=== PATIENT | male | born 1955 | race Caucasian/White ===

== ENCOUNTER 2017-09-23 21:16 | Emergency (ER) | payer BC ==
[~2017-09-23] VITALS: Ht 177.8 cm; Wt 108.3 kg
[~2017-09-23 21:16] MED LIST: CITA20TA9 PO; FLX10 PO; GLC500 PO
[2017-09-23 21:25] VITALS: TEMP 36.6; Ht 177.8 cm; Wt 108.3 kg
[2017-09-23] MEDS ORDERED: DIPHTHERIA/TETANUS/PERTUSSIS 0.5 ML SYR/VIAL IM. ONE (21:45)
[2017-09-23] MEDS ORDERED: LIDOCAINE/EPINEPHRINE 1% 20 ML VIAL INFIL ONE (21:45)
--- NOTE | 2017-09-23 21:59 | EMERGENCY ROOM VISIT NOTE ---
History First contact with patient: 21:31 Chief Complaint: LACERATION/CUT (NON-SUTURE) Stated Complaint: R LEG LAC History of Present Illness The patient is a 61 year old male who presents to the Emergency Room with complaints of a laceration to his right leg. The patient reports that he was moving a refrigerator today and it fell, scraping his right anterior gabriel. He reports he has a laceration to that area. He denies any pain at this time. He states that his tetanus is not up-to-date. He denies any numbness or weakness. Review of Systems A complete 6 point review of systems was reviewed with the patient with pertinent positives and negatives as per history of present illness. All else were negative. Past Medical/Surgical History Medical Problems: (1) Arm pain, left (2) GERD (gastroesophageal reflux disease) (3) Osteoarthritis Surgical Problems: (1) H/O shoulder surgery (2) History of cholecystectomy Family History FH: myocardial infarction FATHER Social History Smoking Status: Never Smoker Drug Use: none Marital Status: Housing Status: lives with significant other Occupation Status: retired Current/Historical Medications Scheduled Citalopram Hydrobromide (Celexa), 20 MG PO DAILY Metformin HCl (Metformin HCl), 500 MG PO BID Scheduled PRN Cyclobenzaprine HCl (Cyclobenzaprine HCl), 10 MG PO DAILY PRN for Muscle Spasms Physical Exam Vital Signs Date Time Temp Pulse Resp B/P (MAP) Pulse Ox O2 Delivery O2 Flow Rate FiO2 09/23/17 22:54 71 18 128/65 95 09/23/17 21:25 36.6 71 18 123/69 95 Room Air Physical Exam VITALS: Vitals are noted on the nurse's note and reviewed by myself. Vital signs stable. GENERAL: This is a 61-year-old male, in no acute distress, nondiaphoretic, well- developed well-nourished. SKIN: There is a 4 cm linear laceration to the right anterior lower leg. No bone or deep structures noted in the base of the wound. No foreign bodies in the base of the wound. No active bleeding. MUSCULOSKELETAL: Full range of motion of the right lower leg and ankle. NEURO: Patient was alert and oriented to person place and time. Distal sensation intact. Medical Decision & Procedures Medications Administered Medications (Trade) Dose Ordered Sig/Linda Route Start Time Stop Time Status Last Admin Dose Admin Lidocaine/ Epinephrine (Xylocaine/Epine 1% Inj) 20 ml ONE ONCE INFIL 09/23/17 21:45 09/23/17 21:46 DC 09/23/17 22:22 20 ML Diphtheria/ Pertussis/Tetanus Vacc (Adacel Inj) 0.5 ml ONCE ONCE IM. 09/23/17 21:45 09/23/17 21:46 DC 09/23/17 22:45 0.5 ML Procedure Verbal consent was obtained to perform the procedure. Using sterile technique the wound was cleaned with Betadine. The area was sterilely draped. 3 ml of 1 % buffered lidocaine with epinephrine was used to anesthetize the leg laceration. Once the patient was anesthetized, the wound was copiously irrigated under pressure with sterile saline. The wound was explored and there were no deep structures injured such as tendons, bone, or significant blood vessels. The laceration was repaired using 5 simple interrupted 4-0 nylon sutures with the wound edges being well approximated. The patient tolerated the procedure well. Hemostasis was achieved. The area was cleaned with sterile saline and dressed with bacitracin ointment and bandage. Medical Decision Differential diagnosis includes laceration, abrasion, contusion, among others. The patient was evaluated as above. Laceration repair was performed as noted in the procedure section. The patient tolerated the procedure well. Suture care instructions were discussed with the patient and his significant other. Patient was given Tdap. He verbalized understanding of my assessment and treatment plan and was discharged home in good condition. Medication Reconcilliation Current Medication List: was personally reviewed by pr Blood Pressure Screening Patient's blood pressure: Normal blood pressure Impression Primary Impression: Laceration of lower extremity Departure Information Dispostion Home / Self-Care Condition GOOD Referrals Fabricio Tillman D.OOlya (PCP) Patient Instructions [facility] Additional Instructions You have received sutures on your leg. These sutures are NOT dissolvable and WILL need to be removed by a health care provider in 14 days. You can return to the Emergency Department or contact your Primary Care Provider to have the sutures removed. Proper wound care is essential for adequate wound healing and infection prevention. You can shower and clean the wound with soap and water. Do not scour over the wound, pat dry with a towel. Do not submerse the wound (i.e. bathe or dish wash) until the sutures have been removed. You can use an antibiotic ointment with a dressing over the wound for the next 3-4 days. After this time you may leave the wound dry and open to the air. If crust develops over the wound you can use a Q-tip to apply a 1:1 peroxide:water solution to clean the wound. Look for signs of infection of the wound including: increased pain, swelling, foul discharge, streaking, or increased temperature. If any of these are noticed you should return to the Emergency Department for further assessment and treatment. As with any laceration you may have received nerve damage to the surrounding tissues. This damage may or may not be permanent. You should keep the area covered with sunscreen for the first 6 months to 1 year when at risk for exposure to help minimize scarring. You can also use scar reducing creams or Vitamin E oil to help minimize scarring. For pain control, you can use the following [id number] medicines (if >12 yo): - Regular strength (325mg/tab) Tylenol (acetaminophen) 2 tabs every 4-6 hours as needed. Do not exceed 12 tablets in a 24 hour period. Avoid taking more than 4 grams (4000 mg) of Tylenol per day. This includes any other sources of acetaminophen you may take on a regular basis. - Regular strength (200 mg/tab) Advil (ibuprofen) 1-2 tabs every 4-6 hours as needed. Do not exceed a dose of 3200 mg per day. Return to the emergency department if your symptoms worsen despite treatment course outlined above. Problem Qualifiers Primary Impression: Laceration of lower extremity Encounter type: initial encounter Laterality: right Qualified Codes: S81.811A - Laceration without foreign body, right lower leg, initial encounter
[2017-09-23 22:54] VITALS: BP 128/65; PULSE 71; O2SAT 95
== END 2017-09-23 22:58 | disposition home or self-care (01) ==
LOC: C.EDB 21:16 → C.EDC 22:58
DX: S81.811A Laceration without foreign body, right lower leg, initial encounter (principal); W20.8XXA Other cause of strike by thrown, projected or falling object, initial encounter; Z23 Encounter for immunization; Z79.84 Long term (current) use of oral hypoglycemic drugs

== ENCOUNTER 2021-10-30 10:28 | Inpatient (IN) ==
[2021-10-30] MEDS ORDERED: HEPARIN SOD (PORCINE) 1000 UNIT/ML ONE (10:33)
[2021-10-30] MEDS ORDERED: HEPARIN SOD (PORCINE) 1000 UNIT/ML IV ONE (10:33)
[2021-10-30] MEDS ORDERED: fentaNYL citrate 100 MCG/2 ML VIAL ONE ×2 (10:37→11:13)
[2021-10-30] MEDS ORDERED: HEPARIN (PORCINE) 1000 UNIT/ML 10 ML (CATH LAB USE ONLY) ONE (10:37)
[2021-10-30] MEDS ORDERED: NITROGLYCERIN/D5W 100MCG/ML 20ML SYR ONE (10:37)
[2021-10-30] MEDS ORDERED: niCARdipine HCL INJ 2.5 MG/ML 10 ML AMP ONE (10:37)
[2021-10-30] MEDS ORDERED: MIDAZOLAM HCL 1 MG/ML 2ML VIAL ONE ×2 (10:37→11:12)
--- NOTE | 2021-10-30 10:52 | XRay Report ---
XR chest 1V portable CLINICAL HISTORY: Atypical chest pain. COMPARISON STUDY: Chest radiograph April 09, 2020. FINDINGS: Lung volumes are normal. Lungs are clear. There is no pneumothorax or pleural effusion. Car diac size is normal. Mediastinal contours are normal. There is no evidence for pulmonary edema. Mild lower lung predominant interstitial thickening is unchanged and likely chronic. IMPRESSION: No acute cardiopulmonary findings. ACT 112: Negative or not required by law. Electronically signed by: Jay Walsh M.D. 10/30/2021 10:51 AM
--- NOTE | 2021-10-30 10:57 | Emergency Department Note ---
Impression & Plan Precordial chest pain, Weakness, Abnormal ECG, Diabetes mellitus ED Provider Note NAME: BRENDA VILLALTA AGE: 66 SEX: M : 1955 ARRIVES VIA: Ambulance INFORMANT: [Patient][ems] ED PROVIDER(S): [Derick Jones MD] Patient first seen by me at the ambulance entrance just outside the ED. CHIEF COMPLAINT: Chest pain HISTORY OF PRESENT ILLNESS: The patient is a 66-year-old male who presents by EMS for left chest discomfort with radiation of pain down his left arm. His symptoms began about an hour and a half ago. He had just gotten up from lying down. He felt weak and just unwell. He developed the chest pain that went to his left arm. The pain was an 8/10. He was mildly short of breath. No nausea or sweating. On the way to the hospital, the patient was given 4 baby aspirin orally as well as 2 nitroglycerin sprays. The patient's pain is now a 4. The patient has been in baseline health as of late. No exertional dyspnea or chest pain. He has a history of diabetes but no history of coronary disease. A heart alert was called prehospital based on ST elevation in the inferior leads. REVIEW OF SYSTEMS: See HPI for pertinent positives and negatives. A total of ten systems were reviewed and were otherwise negative. PMHx/PSHx: See Below SOCIAL HISTORY: See Below. PHYSICAL EXAM: GENERAL: Patient is in no acute distress. HEENT: No acute trauma, normocephalic atraumatic, mucous membranes moist, no nasal congestion, no scleral icterus. NECK: No stridor, no adenopathy, no meningismus, trachea is midline. LUNGS: Clear to auscultation bilaterally, no wheeze, no rhonchi, breath sounds equal. HEART: Without murmurs gallops or rubs, bradycardic, regular rhythm. ABDOMEN: Soft, nontender, bowel sounds positive, no peritonitis. EXTREMITIES: No cyanosis or edema, full range of motion of all the joints without pain or difficulty, no signs for acute trauma. NEUROLOGIC: Oriented x 3, no acute motor or sensory deficits, no focal weakness. SKIN: No rash, no jaundice, mild diaphoresis. DIFFERENTIAL DIAGNOSIS: Cardiac ischemia, aortic dissection, pulmonary embolism, pneumothorax, pneumonia, pericarditis, myocarditis, esophageal rupture, GERD, cholecystitis, pancreatitis, musculoskeletal, as well as other pathologies. EMERGENCY DEPARTMENT COURSE/PROCEDURES: ECG: Indication was chest pain. The ECG shows a sinus bradycardia with a rate of 55. There is subtle ST elevation in the inferior leads. There is some subtle ST depression and T wave inversion in lead aVL. There is no PVC. The QTc is 415. Compared to an ECG from 30 March 2015, the elevation in the inferior leads is new. The ST depression in aVL is new. Continuous Cardiac Monitoring: An order was placed for continuous cardiac monitoring. The monitor shows a rate of 64 with normal sinus rhythm. Critical Care Note: I have personally spent 31 minutes of critical care time in the direct management of this patient. This includes bedside care, interpret ation of diagnostic studies, and testing, discussion with consultants, patient, and family members, and other required patient management activities. This 31 minutes is in excess of all separately billable procedures. MEDICAL DECISION MAKING: There is no leukocytosis or concerning anemia. There is a normal platelet count. No coagulopathy. No renal failure or significant electrolyte abnormality, no concerning liver enzyme elevation. No evidence for pancreatiti s. COVID test was negative. ECG showed a sinus bradycardia with some subtle ST elevation in the inferior leads and some subtle ST depression and T wave inversion in lead aVL. These changes were new when compared to previous ECGs. Cardiac enzyme testing x1 does not show an elevation. Chest film does not show mediastinal widening, pneumonia or pneumothorax. The patient presents with chest pain radiating down his left arm. He had felt weak and unwell at the same time. He has a history of diabetes. He received aspirin and nitroglycerin in route and does feel somewhat better although his c hest pain is persisting. He seemed a bit sweaty on my evaluation. A heart alert was called given the symptoms and complaints. He was seen by the cardiac catheterization team and will be taken to the cardiac catheterization laboratory. I spoke to the patient about our concerns, I talked about his ECG findings. I did speak with the foster care case manager. I spoke to the waste handling technician at the patient's bedside. The on-call hospitalist was consulted. Of note, at the request of the waste handling technician, I did give a 4000 unit bolus of IV heparin. Past Med/Surg History Medical History Insulin resistance Mood disorder Social History Smoking Status: Never smoker Hx Alcohol Use: No Hx Substance Use: No Preferred Language: Uzbek Communication Ability: Effective Quail Farmer Required: No Beliefs That Will Affect Care: None Current Living Situation: Spouse Other Information That Helps Us Care for You: No Feels Safe at Home: Yes Safety Concerns: Feels Safe At This Time Assistive Devices: Glasses Allergies Allergies Allergy/AdvReac Type Severity Reaction Status Date / Time No Known Allergies Allergy U Verified 04/10/20 00:11 Home Meds Home Medications Medication Instructions Recorded Confirmed citalopram 40 mg tablet 40 mg PO DAILY 04/10/20 04/10/20 metformin 500 mg tablet 500 mg PO BID 04/10/20 04/10/20 multivitamin 1 tab PO DAILY 04/10/20 04/10/20 Results & Data (ED) Vital Signs Vital Signs - 24 hr 10/30/21 10:31 10/30/21 10:41 10/30/21 10:42 Temperature 36.6 C Temperature Source Oral Pulse Rate 56 L Pulse Rate [Apical] 64 Pulse Rhythm [Apical] Regular Respiratory Rate 16 16 Respiratory Effort / Characteristics Non-Labored Spontaneous Non-Labored Respiratory Depth Normal Normal Blood Pressure 178/93 H Blood Pressure [Left Arm] 160/89 H Blood Pressure Mean 121 Blood Pressure Mean [Left Arm] 112 Pulse Oximetry 99 99 99 Oxygen Delivery Method Nasal Cannula Nasal Cannula Nasal Cannula Oxygen Flow Rate 4 4 4 Sepsis New/Unexplained Change in Mental Status No Sepsis Action Taken by Nursing No Action Required Home Medications Current Medication List: was personally reviewed by me Laboratory Data Attestation: I reviewed the patient's lab results. Result diagrams: 10/30/21 10:37 10/30/21 10:37 Lab Results 10/30/21 10/30/21 10/30/21 Range/Units 10:37 10:37 10:37 WBC 5.44 (4.8-10.8) K/uL RBC 4.86 (4.7-6.1) M/uL Hgb 14.8 (14.0-18.0) g/dL Hct 43.3 (42-52) % MCV 89.1 (80-100) fL MCH 30.5 (25-34) pg MCHC 34.2 (32-36) g/dL RDW Std Deviation 41.3 (36.4-46.3) fL RDW Coeff of Sapna 12.7 (11.5-14.5) % Plt Count 199 (130-400) K/uL MPV 9.9 (7.4-10.4) fL Immature Gran % (Auto) 0.2 % Neut % (Auto) 52.2 % Lymph % (Auto) 32.7 % [place] % (Auto) 6.4 % Eos % (Auto) 7.9 % Baso % (Auto) 0.6 % Neut # (Auto) 2.84 (1.4-6.5) K/uL Lymph # (Auto) 1.78 (1.2-3.4) K/uL [place] # (Auto) 0.35 (0.11-0.59) K/uL Eos # (Auto) 0.43 (0-0.5) K/uL Baso # (Auto) 0.03 (0-0.2) K/uL Immature Gran # (Auto) 0.01 (0.00-0.02) K/uL PT 10.6 (9.0-12.0) Seconds INR 1.0 (0.9-1.1) APTT 25.4 (21.0-31.0) Seconds PTT Ratio 0.9 Sodium 138 (136-145) mmol/L Potassium 4.2 (3.5-5.1) mmol/L Chloride 107 (98-107) mmol/L Carbon Dioxide 25 (21-32) mmol/L Anion Gap 6 (3-11) BUN 14 (6-23) mg/dl Creatinine 0.92 (0.6-1.4) mg/dl Est Cr Clr Drug Dosing 98.5 ml/min Est GFR ( Amer) 100.1 ml/min Est GFR (Non-Af Amer) 86.4 ml/min BUN/Creatinine Ratio 15.2 (10-20) Glucose 193 H (70-99(Fasting)) mg/dl Calcium 8.7 (8.5-10.1) mg/dl Magnesium 1.8 (1.7-2.4) mg/dl Total Bilirubin 0.6 (0.2-1.0) mg/dl AST 12 L (13-39) U/L ALT 13 (7-52) U/L Alkaline Phosphatase 55 (34-104) U/L Troponin I High Sens 5.2 (0-20) pg/ml Total Protein 5.9 L (6.0-8.3) gm/dl Albumin 3.8 (3.4-5.0) gm/dl Globulin 2.1 L (2.5-4.0) gm/dl Albumin/Globulin Ratio 1.8 (0.9-2) Lipase 30 (11-82) U/L SARS-CoV-2, RNA, NAAT (NEGATIVE) 10/30/21 Range/Units 10:44 WBC (4.8-10.8) K/uL RBC (4.7-6.1) M/uL Hgb (14.0-18.0) g/dL Hct (42-52) % MCV (80-100) fL MCH (25-34) pg MCHC (32-36) g/dL RDW Std Deviation (36.4-46.3) fL RDW Coeff of Sapna (11.5-14.5) % Plt Count (130-400) K/uL MPV (7.4-10.4) fL Immature Gran % (Auto) % Neut % (Auto) % Lymph % (Auto) % [place] % (Auto) % Eos % (Auto) % Baso % (Auto) % Neut # (Auto) (1.4-6.5) K/uL Lymph # (Auto) (1.2-3.4) K/uL [place] # (Auto) (0.11-0.59) K/uL Eos # (Auto) (0-0.5) K/uL Baso # (Auto) (0-0.2) K/uL Immature Gran # (Auto) (0.00-0.02) K/uL PT (9.0-12.0) Seconds INR (0.9-1.1) APTT (21.0-31.0) Seconds PTT Ratio Sodium (136-145) mmol/L Potassium (3.5-5.1) mmol/L Chloride (98-107) mmol/L Carbon Dioxide (21-32) mmol/L Anion Gap (3-11) BUN (6-23) mg/dl Creatinine (0.6-1.4) mg/dl Est Cr Clr Drug Dosing ml/min Est GFR ( Amer) ml/min Est GFR (Non-Af Amer) ml/min BUN/Creatinine Ratio (10-20) Glucose (70-99(Fasting)) mg/dl Calcium (8.5-10.1) mg/dl Magnesium (1.7-2.4) mg/dl Total Bilirubin (0.2-1.0) mg/dl AST (13-39) U/L ALT (7-52) U/L Alkaline Phosphatase (34-104) U/L Troponin I High Sens (0-20) pg/ml Total Protein (6.0-8.3) gm/dl Albumin (3.4-5.0) gm/dl Globulin (2.5-4.0) gm/dl Albumin/Globulin Ratio (0.9-2) Lipase (11-82) U/L SARS-CoV-2, RNA, NAAT NEGATIVE (NEGATIVE) Administered Medications Discontinued Medications Clopidogrel Bisulfate (Clopidogrel Bisulfate 300 Mg Tab) Confirm Administered Dose 600 mg .ROUTE .STK-MED ONE Stop: 10/30/21 11:26 Last Admin: 10/30/21 11:36 Dose: 600 mg Documented by: [id number] Eptifibatide (Eptifibatide 2 Mg/Ml 10 Ml Vial (Medical Lab Assistant Use Only)) Confirm Administered Dose 40 mg IV .STK-MED ONE Stop: 10/30/21 11:02 Last Admin: 10/30/21 11:35 Dose: 40 mg Documented by: [id number] Eptifibatide (Eptifibatide 0.75 Mg/Ml 75mg Vial (Medical Lab Assistant Use Only)) Confirm Administered Dose 75 mg .ROUTE .STK-MED ONE Stop: 10/30/21 11:02 Last Admin: 10/30/21 11:35 Dose: 75 mg Documented by: [id number] Fentanyl Citrate (Fentanyl Citrate 100 Mcg/2 Ml Vial) Confirm Administered Dose 100 mcg .ROUTE .STK-MED ONE Stop: 10/30/21 10:38 Last Increment: 10/30/21 11:30 Dose: 100 mcg Documented by: [id number] Fentanyl Citrate (Fentanyl Citrate 100 Mcg/2 Ml Vial) Confirm Administered Dose 100 mcg .ROUTE .STK-MED ONE Stop: 10/30/21 11:14 Last Admin: 10/30/21 11:35 Dose: Not Given Documented by: [id number] Heparin Sodium (Porcine) (Heparin Sod (Porcine) 1000 Unit/Ml) 4,000 units IV NOW ONE Stop: 10/30/21 10:34 Last Admin: 10/30/21 10:35 Dose: 4,000 units Documented by: [id number] Cosigned by: [id number] Heparin Sodium (Porcine) (Heparin Sod (Porcine) 1000 Unit/Ml) Confirm Administered Dose 1,000 units .ROUTE .[facility] ONE Stop: 10/30/21 10:34 Last Admin: 10/30/21 11:30 Dose: Not Given Documented by: [id number] Heparin Sodium (Porcine) (Heparin (Porcine) 1000 Unit/Ml 10 Ml (Medical Lab Assistant Use Only)) Confirm Administered Dose 10,[address] .[address] .[facility] ONE Stop: 10/30/21 10:38 Last Admin: 10/30/21 11:31 Dose: 4,000 units Documented by: [id number] Midazolam HCl (Midazolam Hcl 1 Mg/Ml 2ml Vial) Confirm Administered Dose 2 [address] .[address] .[facility] ONE Stop: 10/30/21 10:38 Last Admin: 10/30/21 11:34 Dose: 2 mg Documented by: [id number] Midazolam HCl (Midazolam Hcl 1 Mg/Ml 2ml Vial) Confirm Administered Dose 2 mg .[address]TE .[facility] ONE Stop: 10/30/21 11:13 Last Admin: 10/30/21 11:35 Dose: Not Given Documented by: [id number] Nicardipine HCl (Nicardipine Hcl Inj 2.5 Mg/Ml 10 Ml Amp) Confirm Administered Dose 25 mg .ROUTE .[facility] ONE Stop: 10/30/21 10:38 Last Admin: 10/30/21 11:34 Dose: 25 mg Documented by: [id number] Nitroglycerin/Dextrose (Nitroglycerin/D5w 100mcg/Ml 20ml Syr) Confirm Administered Dose 2,000 mcg .ROUTE .[facility] ONE Stop: 10/30/21 10:38 Last Admin: 10/30/21 11:35 Dose: 2,000 mcg Documented by: [id number] Imaging Data Radiologist's Impression: Chest X-Ray 10/30/21 10:23 XR chest 1V portable CLINICAL HISTORY: Atypical chest pain. COMPARISON STUDY: Chest radiograph April 09, 2020. FINDINGS: Lung volumes are normal. Lungs are clear. There is no pneumothorax or pleural effusion. Cardiac size is normal. Mediastinal contours are normal. There is no evidence for pulmonary edema. Mild lower lung predominant interstitial thickening is unchanged and likely chronic. IMPRESSION: No acute cardiopulmonary findings. ACT 112: Negative or not required by law. Electronically signed by: Jay Walsh M.D. 10/30/2021 10:51 AM Discharge Plan Visit Data Chief Complaint: Heart Alert ED Provider: Derick Jones Discharge Problem: Precordial chest pain, Weakness, Abnormal ECG, Diabetes mellitus Patient Disposition: Admitted As Inpatient Condition: Serious Discharge Instructions Interventions: ED Discharge Assessment Last Done: 10/30/21 10:46
[2021-10-30] MEDS ORDERED: EPTIFIBATIDE 0.75 MG/ML 75MG VIAL (CATH LAB USE ONLY) ONE (11:01)
[2021-10-30] MEDS ORDERED: EPTIFIBATIDE 2 MG/ML 10 ML VIAL (CATH LAB USE ONLY) IV ONE (11:01)
[2021-10-30 11:07] LABS: Partial Thromboplastin Ratio 0.9; Partial Thromboplastin Time 25.4 Seconds (21.0-31.0); Prothrombin Time 10.6 Seconds (9.0-12.0)
[2021-10-30 11:09] LABS: Basophils # (auto) 0.03 K/uL (0-0.2); Basophils % (auto) 0.6 %; Eosinophils # (auto) 0.43 K/uL (0-0.5); Eosinophils % (auto) 7.9 %; Hematocrit (blood only) 43.3 % (42-52); Hemoglobin 14.8 g/dL (14.0-18.0); Immature Granulocytes # (auto) 0.01 K/uL (0.00-0.02); Immature Granulocytes % (auto) 0.2 %; Lymphocytes # (auto) 1.78 K/uL (1.2-3.4); Lymphocytes % (auto) 32.7 %; Mean Corpuscular Hemoglobin 30.5 pg (25-34); Mean Corpuscular Hgb Conc 34.2 g/dL (32-36); Mean Corpuscular Volume 89.1 fL (80-100); Mean Platelet Volume 9.9 fL (7.4-10.4); Monocytes # (auto) 0.35 K/uL (0.11-0.59); Monocytes % (auto) 6.4 %; Neutrophils # (auto) 2.84 K/uL (1.4-6.5); Neutrophils % (auto) 52.2 %; Platelet Count 199 K/uL (130-400); RDW Coefficient of Variation 12.7 % (11.5-14.5); RDW Standard Deviation 41.3 fL (36.4-46.3); Red Blood Count 4.86 M/uL (4.7-6.1); White Blood Count 5.44 K/uL (4.8-10.8)
[2021-10-30 11:14] LABS: Albumin Globulin Ratio 1.8 (0.9-2); Albumin Level 3.8 gm/dl (3.4-5.0); BUN Creatinine Ratio 15.2 (10-20); Bilirubin,Total 0.6 mg/dl (0.2-1.0); Calcium 8.7 mg/dl (8.5-10.1); Creatinine Clr Calc Pharmacy 98.5 ml/min; Est GFR (African American) 100.1 ml/min; Est GFR (Non-African American) 86.4 ml/min; Globulin 2.1 gm/dl (2.5-4.0); Magnesium 1.8 mg/dl (1.7-2.4); Potassium 4.2 mmol/L (3.5-5.1); Total Protein 5.9 gm/dl (6.0-8.3)
[2021-10-30 11:19] LABS: Troponin I High Sensitivity 5.2 pg/ml (0-20)
[2021-10-30] MEDS ORDERED: CLOPIDOGREL BISULFATE 300 MG TAB ONE (11:25)
--- NOTE | 2021-10-30 12:00 | Pre Anesthesia Assessment ---
Date of Service October 30, 2021 Pre Sedation Assessment Vital Signs Temp Pulse Pulse Resp BP BP Pulse Ox 10/30/21 10:42 64 16 160/89 H 99 10/30/21 10:41 99 10/30/21 10:31 36.6 C 56 L 16 178/93 H 99 Cardiovascular RRR, no murmur, no edema + regular rhythm + S1 normal + peripheral pulses normal + capillary refill normal Respiratory + respiratory effort normal Pre-Sedation Airway Assessment Smoking Status: Never smoker Hx Sleep Apnea: No Hx Difficult Intubation: No Short, Thick Neck: No Thyromental Distance: > or= 3.5 Finger Breadths Oral Cavity: + WNL Mallampati Class: II ASA: ASA3 Procedure Planning Contraindications for Sedation: none Current Medications Reviewed: Yes Notes The planned sedation has been discussed with the patient. Informed Consent was obtained. I have identified the patient, determined the appropriateness of sedation and have assessed the patient immediately prior to the procedure. All medicine(s) and interventions are by my order.
--- NOTE | 2021-10-30 12:15 | Post Anesthesia Assessment ---
Date of Service October 30, 2021 Post Sedation Assessment Vital Signs Temp Pulse Pulse Resp BP BP Pulse Ox 10/30/21 10:42 64 16 160/89 H 99 10/30/21 10:41 99 10/30/21 10:31 36.6 C 56 L 16 178/93 H 99 Recovery Score Activity: Moves 4 extremities Discharge Sedation Level of Care: Phase I Post Sedation Plan On clinical assessment, the patient appears to have tolerated the sedation without complications. Patient is recovering as anticipated. Patient will continue to be monitored by nursing and may be discharged when sedation discharge criteria are met per below protocol. Upon Completions of procedure up to 15 minutes continue every 5 minute vital signs and the P.A.R. score; then discharge to a Phase I or Fast Track to Phase II per the following guidelines: * Discharge Patient to appropriate Phase II area if PAR is 8 or greater or return to pre- procedure baseline. The post - procedure orders will be as directed. * If PAR score is less than 8 or not return to pre-procedure baseline then patient will follow Phase I monitoring till PAR is reached for Phase II. The Phase I may be done in procedure room or may call to secure a Phase I area. * If naloxone or flumazenil are used for reversal, hold in Phase I for continued monitoring from when last reversal dose was given for a minimum of 60 minutes or longer pending the nurse and/or physician discretion of patient condition before discharge to Phase II. Please call the Sedation Physician to re-evaluate and complete post-note for discharge to Phase II area. Do NOT discharge from procedure sedation or Phase 1 until post- sedation evaluation note is complete by procedure /sedation MD Sedation Discharge Instructions to be given to the patient at discharge to home.
--- NOTE | 2021-10-30 12:15 | Cardiac Catheterization ---
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 Status Clinical evaluation leading to the procedure CAD Presenation: STEMI Anginal Classification: CCS IV Heart Failure: No Cardiogenic Shock within 24 Hours: No Cardiac Arrest within 24 Hours: No Imaging Studies Past 6 Months: No Stress Studies Past 6 Months: No Standard Exercise Test: No Stress Echocardiogram: No Stress Testing w/SPECT MPI: No Cardiac CTA: No STEMI OR Non-STEMI Symptom Onset Date: 10/30/21 Symptom Onset Time: 09:00 Thrombolytics: No Coronary Anatomy Dominant: Co-Dominant Left Main (% Stenosis): Normal LAD (% Stenosis): Proximal (60) D1 (% Stenosis): Normal D2 (% Stenosis): Normal D3 (% Stenosis): Normal Circumflex (% Stenosis): Normal OM1 (% Stenosis): Normal OM2 (% Stenosis): Normal OM3 (% Stenosis): Normal RCA (% Stenosis): Proximal (100) Left Ventricular Angiography EF (%): 60 Mitral Regurgitation: None Diagnostic Physicians Name: Jermaine Salcedo MD Status: Emergency Closure Device Percutaneous Entry Location: Radial Closure Device: Radial Band Recommendations: Medical Therapy and/or Counseling and Management Recommendatons (Consider staged iFR of the proximal LAD +/- intervention) PCI Indication: PCI for STEMI - Stable First Noted: First EKG Lesion Segment Name: Proximal RCA Culprit Artery: Yes Stenosis Prior to Rx (%): 100 Chronic Total Occlusion: No IVUS: No FFR: No Pre-Procedure PAULY Flow: 0 Previously Treated Lesion: No Lesion Complexity: Non-High/Non-C Lesion Length (mm): 30 Thrombus Present: Yes Bifurcation Lesion: No Guidewire Across Lesion: Yes Intraprocedure Events Significant Disection: No Perforation: No Cardiac Cath Procedure Full Procedure Date October 30, 2021 Pre-Procedure Diagnosis Pre-Procedure Diagnosis: STEMI AUC Score AUC Score: 7 Post-Procedure Diagnosis Post-Procedure Diagnosis: Severe CAD, Successful PCI, Normal LV Systolic Function and Elevated Intracardiac Pressures Procedure(s) Performed Procedure(s) Performed: Left Heart Cath and Drug Eluting Stent Shelf Filler Jermaine Salcedo MD Estimated Blood Loss Estimated Blood Loss: None Medication(s) Medication(s): Clopidogrel, Fentanyl, Integrilin, Lidocaine 1%, Nicardipine, Nitroglycerin and Versed Summary of Findings Coronaries: -RCA 100% proximal occlusion with large thrombus burden. successful PCI -LM: Minimal irregularities. - LAD 60% proximal calcified stenosis - LCX: no significant disease LV gram : LVEDP 17 mmHg, LVEF 60%, no WMA, no MR. Lesion # 1 ACC-AHA type C, tortuosity moderate, no calcification - Guide catheter JR 4 guide - Wire runthrough - Unfractionated Heparin dose 2000 IU IV Lesion was crossed with Runthrough wire and balloon angioplasty was performed with 2.0 x 12 mm balloon. Following predilatation, a 2.5 x 30 mm stent was deployed at nominal pressure. Stent postdilation was performed with 2.75 mm NC balloon. Final angiography showed PAULY III flow Hemodynamics Rest Ao:: 139/82/108 Final Ao: 106/62/83 LV: 130/17 Recommendations Recommendations: Medical Therapy and/or Counseling and Management Recommendatons (Consider staged iFR of the proximal LAD +/- intervention) Specimens Specimens: None Radiation Exposure (mGy) 1901 mGy; DAP 40204 cGy/cm2 Contrast (mls) 60 Procedural Complication(s) None Disposition ICU I attest to the content of the Intraoperative Record and any orders documented therein. Any exceptions are noted below. [facility] Card Cath Procedure Codes Cardiac Catheterization Procedure 1: Cardiovascular Cath Procedures: 15407 Left Heart Cath (+/-LV) Moderate Sedation Procedure 1: Sedation/Anesthesia: 11842 Mod Sedation by the same physician; Ea [id number] Minutes (x1) Stenting Procedure 1: Cardiovascular Stent Procedures: 64678 Perc transluminal revascularization of acute sub/total occl, aMI PG Care Time/CCT Total # of Minutes Spent Total Time Spent: 120 Total Time Spent with Patient: Total time spent is greater than 50% in coordination of care (as documented) at patient's floor/unit and/or counseling patient: Prolonged Care Time Prolonged Care Time: No Critical Care Time: No
[2021-10-30] MEDS ORDERED: EPTIFIBATIDE BOLUS/DRIP IV STA (12:27)
[2021-10-30] MEDS ORDERED: ICU PROTOCOL FOR HYPERGLYCEMIA PRN ×2 (12:27)
[2021-10-30] MEDS ORDERED: [UNRECOGNIZED DRUG - OTHER] IV SCH (12:27)
[2021-10-30] MEDS ORDERED: STAT IV Infusion **Titration per Protocol STA (12:27)
[2021-10-30] MEDS ORDERED: EPTIFIBATIDE 75 MG/100 ML VIAL IV SCH (12:27)
[2021-10-30] MEDS ORDERED: NITROGLYCERIN SL 0.4 MG/TAB TAB SL PRN (12:27)
--- NOTE | 2021-10-30 12:29 | Critical Care Consultation ---
Date of Consultation October 30, 2021 Assessment & Plan (1) CAD (coronary artery disease): Successful PCI Dual antiplatelet therapy High intensity statin JOSE inhibitor (2) Diabetes mellitus: Check hemoglobin A1c History of Present Illness Reason for Consultation: STEMI Requesting Physician: Moraima Beasley MD Attending Physician: Moraima Beasley MD History of Present Illness Patient is a 66-year-old male with a past medical history for diabetes on metformin who presented to the emergency department with left chest discomfort and radiation down his left arm. He was found to have a ST elevation [place] and was taken emergently to the Bank Analyst. In the Bank Analyst he was discovered to have a 100% proximal RCA occlusion which was successfully stented, LAD with 60% proximal calcified stenoses. During my evaluation in the ICU the patient is chest pain-free and feels much better. No palpitations no shortness of breath. Allergies Allergy/AdvReac Type Severity Reaction Status Date / Time No Known Allergies Allergy U Verified 04/10/20 00:11 Home Medications Medication Instructions Recorded Confirmed Type citalopram 40 mg tablet 40 mg PO DAILY 04/10/20 10/30/21 History metformin 500 mg tablet 500 mg PO BID 04/10/20 10/30/21 History multivitamin 1 tab PO DAILY 04/10/20 10/30/21 History Patient History Medical History Insulin resistance Mood disorder Social History Smoking Status: Never smoker Hx Alcohol Use: No Hx Substance Use: No Preferred Language: Libyan Communication Ability: Effective Race Relations Adviser Required: No Beliefs That Will Affect Care: None Current Living Situation: Spouse Other Information That Helps Us Care for You: No Feels Safe at Home: Yes Safety Concerns: Feels Safe At This Time Assistive Devices: Glasses Physical Exam Physical Exam: General: Alert. nontoxic. Skin: Warm, dry, Head: Atraumatic Ears, nose, mouth and throat: airway patent Cardiovascular: Normal peripheral perfusion Respiratory: no respiratory distress Gastrointestinal: Non distended Musculoskeletal: No deformity Results & Data Results & Data ([facility]) Vital Signs (Past 12 Hours) Vital Signs Temp Pulse Pulse Resp BP BP Pulse Ox 10/30/21 12:15 48 L 18 120/72 98 10/30/21 12:00 52 L 18 126/66 97 10/30/21 11:57 51 L 20 134/73 97 10/30/21 11:49 52 L 20 134/73 97 10/30/21 10:42 64 16 160/89 H 99 10/30/21 10:41 99 10/30/21 10:31 36.6 C 56 L 16 178/93 H 99 Critical Care Results & Data Vital Signs (Past 12 Hours) Vital Signs Temp Pulse Pulse Resp BP BP Pulse Ox 10/30/21 12:15 48 L 18 120/72 98 10/30/21 12:00 52 L 18 126/66 97 10/30/21 11:57 51 L 20 134/73 97 10/30/21 11:49 52 L 20 134/73 97 10/30/21 10:42 64 16 160/89 H 99 10/30/21 10:41 99 10/30/21 10:31 36.6 C 56 L 16 178/93 H 99 Lab & Micro Results (Past 24 Hours) RBC 4.86 M/uL (4.7-6.1) 10/30/21 WBC 5.44 K/uL (4.8-10.8) 10/30/21 Hgb 14.8 g/dL (14.0-18.0) 10/30/21 Hct 43.3 % (42-52) 10/30/21 MCV 89.1 fL (80-100) 10/30/21 MCH 30.5 pg (25-34) 10/30/21 MCHC 34.2 g/dL (32-36) 10/30/21 RDW Standard Deviation 41.3 fL (36.4-46.3) 10/30/21 RDW Coefficient of Variation 12.7 % (11.5-14.5) 10/30/21 Plt Count 199 K/uL (130-400) 10/30/21 MPV 9.9 fL (7.4-10.4) 10/30/21 Neutrophils (%) (Auto) 52.2 % 10/30/21 Lymphocytes (%) (Auto) 32.7 % 10/30/21 Monocytes # (Auto) 0.35 K/uL (0.11-0.59) 10/30/21 Eosinophils # (Auto) 0.43 K/uL (0-0.5) 10/30/21 Immature Granulocyte % (Auto) 0.2 % 10/30/21 Neutrophils # (Auto) 2.84 K/uL (1.4-6.5) 10/30/21 Lymphocytes # (Auto) 1.78 K/uL (1.2-3.4) 10/30/21 Monocytes # (Auto) 0.35 K/uL (0.11-0.59) 10/30/21 Eosinophils # (Auto) 0.43 K/uL (0-0.5) 10/30/21 Basophils # (Auto) 0.03 K/uL (0-0.2) 10/30/21 Immature Granulocyte # (Auto) 0.01 K/uL (0.00-0.02) 10/30/21 Na 138 mmol/L (136-145) 10/30/21 K 4.2 mmol/L (3.5-5.1) 10/30/21 Cl 107 mmol/L (98-107) 10/30/21 CO2 25 mmol/L (21-32) 10/30/21 Anion Gap 6 (3-11) 10/30/21 BUN 14 mg/dl (6-23) 10/30/21 Creatinine 0.92 mg/dl (0.6-1.4) 10/30/21 Estimated GFR ( Amer) 100.1 ml/min 10/30/21 Estimated GFR (Non-Af Amer) 86.4 ml/min 10/30/21 BUN/Creatinine Ratio 15.2 (10-20) 10/30/21 Glu 193 mg/dl (70-99(Fasting)) H 10/30/21 Ca 8.7 mg/dl (8.5-10.1) 10/30/21 Total Bilirubin 0.6 mg/dl (0.2-1.0) 10/30/21 AST 12 U/L (13-39) L 10/30/21 ALT 13 U/L (7-52) 10/30/21 Alkaline Phosphatase 55 U/L (34-104) 10/30/21 TP 5.9 gm/dl (6.0-8.3) L 10/30/21 Albumin 3.8 gm/dl (3.4-5.0) 10/30/21 Globulin 2.1 gm/dl (2.5-4.0) L 10/30/21 Albumin/Globulin Ratio 1.8 (0.9-2) 10/30/21 Mg 1.8 mg/dl (1.7-2.4) 10/30/21 10:37 10/30/21 Calcium Level 8.7 mg/dl (8.5-10.1) 10/30/21 10:37 10/30/21 Prothromb Time International Ratio 1.0 (0.9-1.1) 10/30/21 10:37 10/30/21 Diagnostic Findings (Past 24 Hours) Chest X-Ray 10/30/21 10:23 XR chest 1V portable CLINICAL HISTORY: Atypical chest pain. COMPARISON STUDY: Chest radiograph April 09, 2020. FINDINGS: Lung volumes are normal. Lungs are clear. There is no pneumothorax or pleural effusion. Cardiac size is normal. Mediastinal contours are normal. There is no evidence for pulmonary edema. Mild lower lung predominant interstitial thickening is unchanged and likely chronic. IMPRESSION: No acute cardiopulmonary findings. ACT 112: Negative or not required by law. Electronically signed by: Jay Walsh M.D. 10/30/2021 10:51 AM RT Ventilator Mngmt (Last Documented) Ventilator Ordered Settings Respiratory Rate 18 10/30/21 12:15 Ventilator - PT Measurements Respiratory Rate 18 Coding Level of Care Code 76905 Inpt Consult Level 4 Diagnoses CAD (coronary artery disease) I25.10 Diabetes mellitus E11.9 Diabetes mellitus complication status: without complication Diabetes mellitus care home insulin use: without care home use Diabetes mellitus type: type 2 (1) Diabetes mellitus Diabetes mellitus complication status: without complication Diabetes mellitus rn long term care insulin use: without rn long term care use Diabetes mellitus type: type 2 Qualified Code(s): E11.9 - Type 2 diabetes mellitus without complications
--- NOTE | 2021-10-30 13:11 | History & Physical Report ---
Date of Service October 30, 2021 Assessment & Plan (1) ACS (acute coronary syndrome): (2) STEMI (ST elevation myocardial infarction): (3) RCA occlusion: (4) Diabetes mellitus: Plan: This is a 66-year-old male who has significant past medical history of T2DM, GERD, BPH, depression who presents to ED after experiencing chest pain prior to arrival. ACS STEMI 2/2 RCA occlusion CAD -residual LAD and left circumflex Patient currently admitted to ICU Continue Integrilin until finished Loaded with Plavix in Radiology Physician Assistant Dual antiplatelet therapy with aspirin and Plavix starting tomorrow Metoprolol initiated by interventionalist, titrate as blood pressure and heart rate allow High intensity statin, atorvastatin Echocardiogram Cycle troponin until peak a1c and lipid panel in a.m. T2DM A1c 6.6 on 06/14/2021 Obtain A1c in a.m. Hold metformin NovoLog correction factor protocol Depression Continue citalopram dvt ppx: SCD/TEDS today while on integrillin, start lovenox tomorrow Dispo: ICU PCP: Arlette Jane FULL CODE Pt was seen and examined in collaboration with Dr. Grossman, please see addendum Admission and Anticipated Discharge Date Admission Date: October 30, 2021 History of Present Illness Chief Complaint: chest pain prior to arrival Primary Care Provider: Fabricio Tillman, This is a 66-year-old male who has significant past medical history of T2DM, GERD, BPH, depression who presents to ED after experiencing chest pain prior to arrival. Patient denies any prior history of CAD or coronary intervention. He is otherwise an active male who goes to the gym and lifts weights 2-3 times a week. He woke up this morning approximately 6:30 AM and generally felt unwell. Shortly after he then began to experience substernal chest pain that radiated to his left arm. He also was diaphoretic and nauseated. EMS was summoned. He was noted to have ST elevations inferiorly. He received 2 sublingual nitro and 4 baby aspirin which did improve chest pain and EKG. Patient was made a heart alert and directed immediately to cardiac Radiology Physician Assistant. He was found to have 100% occluded RCA with large thrombus. 1 successful BRITTANY was placed in the RCA. He was started on Integrilin due to thrombus. He was also noted to have 60% LAD disease and 50% proximal left circumflex disease. Patient's chest pain improved and he was transferred to ICU on Integrilin. Currently patient is chest pain- free. He currently denies any recent illness, fever, chills, sweats, lightheadedness, dizziness, chest pain, shortness breath, cough, URI symptoms, hemoptysis, nausea, vomiting, abdominal pain, change in bowel or urinary habits. Allergies Allergy/AdvReac Type Severity Reaction Status Date / Time No Known Allergies Allergy U Verified 04/10/20 00:11 Home Medications Medication Instructions Recorded Confirmed Type citalopram 40 mg tablet 40 mg PO DAILY 04/10/20 10/30/21 History metformin 500 mg tablet 500 mg PO BID 04/10/20 10/30/21 History multivitamin 1 tab PO DAILY 04/10/20 10/30/21 History Past Med/Surg History Medical History BPH (benign prostatic hyperplasia) Depression Diabetes mellitus GERD (gastroesophageal reflux disease) Insulin resistance Mood disorder Surgical History S/P coronary artery stent placement Family History Denies family history of Coronary heart disease Social History Smoking Status: Never smoker Hx Alcohol Use: No Hx Substance Use: No Preferred Language: Senegalese Communication Ability: Effective Dry House Attendant Required: No Beliefs That Will Affect Care: None Current Living Situation: Spouse Feels Safe at Home: Yes Assistive Devices: Glasses Review of Systems Review of Systems: All systems reviewed & are unremarkable except as noted in HPI & below Physical Exam Physical Exam: Please refer to Dr. Grossman addendum for physical exam findings. Results & Data Results & Data ([facility]) Vital Signs (Past 12 Hours) Vital Signs Temp Pulse Pulse Resp BP BP Pulse Ox 10/30/21 13:00 56 L 21 163/84 H 95 10/30/21 12:30 52 L 16 124/73 98 10/30/21 12:15 48 L 18 120/72 98 10/30/21 12:00 52 L 18 126/66 97 10/30/21 11:57 51 L 20 134/73 97 10/30/21 11:49 52 L 20 134/73 97 10/30/21 10:42 64 16 160/89 H 99 10/30/21 10:41 99 10/30/21 10:31 36.6 C 56 L 16 178/93 H 99 Diagnostic Findings Chest X-Ray 10/30/21 10:23 XR chest 1V portable CLINICAL HISTORY: Atypical chest pain. COMPARISON STUDY: Chest radiograph April 09, 2020. FINDINGS: Lung volumes are normal. Lungs are clear. There is no pneumothorax or pleural effusion. Cardiac size is normal. Mediastinal contours are normal. There is no evidence for pulmonary edema. Mild lower lung predominant interstitial thickening is unchanged and likely chronic. IMPRESSION: No acute cardiopulmonary findings. ACT 112: Negative or not required by law. Electronically signed by: Jay Walsh M.D. 10/30/2021 10:51 AM Cardiac Cath Summary of Findings Coronaries: -RCA 100% proximal occlusion with large thrombus burden. successful PCI -LM: Minimal irregularities. - LAD 60% proximal calcified stenosis - LCX: 50% proximal stenosis LV gram : LVEDP 17 mmHg, LVEF 60%, no WMA, no MR. Lesion # 1 ACC-AHA type C, tortuosity moderate, no calcification - Guide catheter JR 4 guide - Wire runthrough - Unfractionated Heparin dose 2000 IU IV Lesion was crossed with Runthrough wire and balloon angioplasty was performed with 2.0 x 12 mm balloon. Following predilatation, a 2.5 x 30 mm stent was deployed at nominal pressure. Stent postdilation was performed with 2.75 mm NC balloon. Final angiography showed PAULY III flow Hemodynamics Rest Ao:: 139/82/108 Final Ao: 106/62/83 LV: 130/17 Recommendations Recommendations: Medical Therapy and/or Counseling and Management Recommendatons (Consider staged iFR of the proximal LAD +/- intervention) Medications Administered Current Inpatient Medications Aspirin (Aspirin 81 Mg Ectab) 81 mg PO QAM [facility] Stop: 11/30/21 08:59 Atorvastatin Calcium (Atorvastatin 40 Mg Tab) 40 mg PO QAM [facility] Stop: 11/29/21 12:26 Last Admin: 10/30/21 13:16 Dose: 40 mg Documented by: Citalopram Hydrobromide (Citalopram 40 Mg Tab) 40 mg PO DAILY [facility] Stop: 11/30/21 08:59 Clopidogrel Bisulfate (Clopidogrel Bisulfate 75 Mg Tab) 75 mg PO QAM [facility] Stop: 11/30/21 08:59 Enoxaparin Sodium (Enoxaparin Inj 40 Mg/0.4 Ml Syr) 40 mg SQ DAILY@1100 [facility] Stop: 11/30/21 10:59 Eptifibatide (Integrilin) 75 mg in 100 mls @ 16.768 mls/hr IV .Q5H58M [facility] Stop: 10/30/21 17:30 Last Admin: 10/30/21 11:35 Dose: 2 mcg/kg/min, 16.8 mls/hr Documented by: Metoprolol Tartrate (Metoprolol Tartrate 25 Mg Tab) 25 mg PO BID [facility] Stop: 11/29/21 12:26 Last Admin: 10/30/21 13:15 Dose: 25 mg Documented by: Miscellaneous (Icu Protocol For Hyperglycemia) 1 ea N/A PRN PRN; Protocol PRN Reason: Hyperglycemia Protocol Stop: 11/01/21 12:26 Nitroglycerin (Nitroglycerin Sl 0.4 Mg/Tab Tab) 0.4 mg SL Q5M PRN PRN Reason: Chest Pain X 3 DOSES Stop: 11/29/21 12:26 ECG Rate (beats per minute): 55 Rhythm: sinus bradycardia COVID-19 Results Results COVID-19 Adm Lab Results: RBC 4.86 M/uL (4.7-6.1) 10/30/21 WBC 5.44 K/uL (4.8-10.8) 10/30/21 Hgb 14.8 g/dL (14.0-18.0) 10/30/21 Hct 43.3 % (42-52) 10/30/21 Plt Count 199 K/uL (130-400) 10/30/21 Neutrophils (%) (Auto) 52.2 % 10/30/21 Lymphocytes (%) (Auto) 32.7 % 10/30/21 Monocytes # (Auto) 0.35 K/uL (0.11-0.59) 10/30/21 Eosinophils # (Auto) 0.43 K/uL (0-0.5) 10/30/21 Immature Granulocyte % (Auto) 0.2 % 10/30/21 Neutrophils # (Auto) 2.84 K/uL (1.4-6.5) 10/30/21 Lymphocytes # (Auto) 1.78 K/uL (1.2-3.4) 10/30/21 Monocytes # (Auto) 0.35 K/uL (0.11-0.59) 10/30/21 Eosinophils # (Auto) 0.43 K/uL (0-0.5) 10/30/21 Basophils # (Auto) 0.03 K/uL (0-0.2) 10/30/21 Immature Granulocyte # (Auto) 0.01 K/uL (0.00-0.02) 10/30/21 Na 138 mmol/L (136-145) 10/30/21 K 4.2 mmol/L (3.5-5.1) 10/30/21 Cl 107 mmol/L (98-107) 10/30/21 CO2 25 mmol/L (21-32) 10/30/21 Anion Gap 6 (3-11) 10/30/21 BUN 14 mg/dl (6-23) 10/30/21 Creatinine 0.92 mg/dl (0.6-1.4) 10/30/21 BUN/Creatinine Ratio 15.2 (10-20) 10/30/21 Glucose Level 193 mg/dl (70-99(Fasting)) H 10/30/21 Ca 8.7 mg/dl (8.5-10.1) 10/30/21 Total Bilirubin 0.6 mg/dl (0.2-1.0) 10/30/21 AST/SGOT 12 U/L (13-39) L 10/30/21 ALT/SGPT 13 U/L (7-52) 10/30/21 Alkaline Phosphatase 55 U/L (34-104) 10/30/21 Total Protein 5.9 gm/dl (6.0-8.3) L 10/30/21 Albumin 3.8 gm/dl (3.4-5.0) 10/30/21 Globulin 2.1 gm/dl (2.5-4.0) L 10/30/21 Albumin/Globulin Ratio 1.8 (0.9-2) 10/30/21 PTT 25.4 Seconds (21.0-31.0) 10/30/21 INR 1.0 (0.9-1.1) 10/30/21 SARS-CoV-2, RNA, NAAT NEGATIVE (NEGATIVE) 10/30/21 Chest X-Ray 10/30/21 Code Status & VTE Plan Code Status FULL CODE Supervising Physician Co-Signing Physician Notes Pt is a 66 y/o M with hx of DMII, GERD, BPH, Depression admitted for STEMI. PE: NAD, well developed Card: Normal S1/S2, no murmur Lungs: CTA, no wheezing or crackles Abd: ND, NT, soft MSK: pressure dressing/cuff on the R wrist, no LE edema Psych: AAOx3, normal affect A/P: STEMI: -s/p BRITTANY in RCA -pt was started on Eptifibatide drip for 4 hrs - s/p Plavix loading dose - will continue aspirin, Plavix, Lipitor - will consult Cards -continue pt on tele ---currently his HR is at low normal range therefore will hold on starting metoprolol for now -start pt on lovenox for DVT ppx christian especially with current infusion of Eptifibatide ---- until then SCD for DVT ppx DMII: -hold metformin -continue ISS BPH/GERD/Depression: -continue celexa -otherwise pt does not take any meds for BPH or GERD Agree with A/P by Carrol Carter PA-C (1) Diabetes mellitus Diabetes mellitus complication status: without complication Diabetes mellitus senior living insulin use: without senior living use Diabetes mellitus type: type 2 Qualified Code(s): E11.9 - Type 2 diabetes mellitus without complications
[2021-10-30] MEDS: METOPROLOL TARTRATE 25 MG TAB PO SCH ×2 (13:15→20:30)
[2021-10-30] MEDS: ATORVASTATIN 40 MG TAB PO SCH (13:16)
[2021-10-30] MEDS ORDERED: GLUCOSE 40% GEL 15 GM TUBE PO PRN (13:32)
[2021-10-30] MEDS ORDERED: DEXTROSE 50% 50 ML SYRINGE IV PRN (13:32)
[2021-10-30] MEDS ORDERED: CARBOHYDRATES FOR HYPOGLYCEMIA PO PRN (13:32)
[2021-10-30] MEDS ORDERED: GLUCAGON FOR INJ 1 MG VIAL SQ PRN (13:32)
[2021-10-30] MEDS ORDERED: GLUCOSE 10 TABS/TUBE PO PRN (13:32)
--- NOTE | 2021-10-30 14:33 | Cardiology Consultation ---
Date of Consultation October 30, 2021 Assessment & Plan (1) STEMI (ST elevation myocardial infarction): (2) CAD (coronary artery disease): (3) Diabetes mellitus: (4) GERD (gastroesophageal reflux disease): (5) Depression: The pathophysiology of acute coronary occlusion along with nonobstructive coronary artery disease was discussed with him at great lengths. He is already been successfully intervened upon, started on dual antiplatelet therapy and has received Integrilin drip. Beta-reid has been ordered but has been relatively bradycardic and has not received. This is not a surprising finding given the fact that was in RCA event. Locally there is no sign of any RV involvement on echocardiogram but would avoid lowering preload Will monitor in the ICU for 24 hours and then telemetry for another 48. The patient states he understands the above. History of Present Illness Reason for Consultation: STEMI Requesting Physician: Dr. Beasley Attending Physician: Moraima Beasley MD History of Present Illness It was my pleasure to see Mr. Yousif in cardiac consultation today October 30, 2021. He is a very pleasant 66-year-old gentleman who presented to [facility] in the a.m. of 10/30/2021 with complaints of chest discomfort. He states he went to bed last night his normal state of health but then upon awakening this morning to walk his dog he developed some chest discomfort. He states that it is difficult to quantify or qualify the dis comfort other than just a generalized achy sensation. The discomfort started to radiate down both of his upper extremities and he became diaphoretic and nauseated. EMS was called and he was diagnosed with an inferior STEMI. He was taken emergently to the cardiac catheterization lab where 100% thrombotic occlusion of the RCA was successfully intervened upon. He was also found to have nonobstructive disease with 60% stenosis of his LAD and 50% proximal circumflex disease. Currently he is symptom-free and states that he feels well. Allergies Allergy/AdvReac Type Severity Reaction Status Date / Time No Known Allergies Allergy U Verified 04/10/20 00:11 Home Medications Medication Instructions Recorded Confirmed Type citalopram 40 mg tablet 40 mg PO DAILY 04/10/20 10/30/21 History metformin 500 mg tablet 500 mg PO BID 04/10/20 10/30/21 History multivitamin 1 tab PO DAILY 04/10/20 10/30/21 History Patient History Medical History BPH (benign prostatic hyperplasia) Depression Diabetes mellitus GERD (gastroesophageal reflux disease) Insulin resistance Mood disorder Surgical History S/P coronary artery stent placement Family History Denies family history of Coronary heart disease Social History Smoking Status: Never smoker Hx Alcohol Use: No Hx Substance Use: No Preferred Language: Indonesian Communication Ability: Effective Cigar Roller Required: No Beliefs That Will Affect Care: None Current Living Situation: Spouse Feels Safe at Home: Yes Assistive Devices: Glasses Review of Systems Review of Systems: All systems reviewed & are unremarkable except as noted in HPI & below Physical Exam Physical Exam: General: Awake, alert and oriented x 3. No acute distress. HEENT: Normocephalic, atraumatic. Pupils equal, round and reactive to light and accommodation. Extraocular muscles are intact. Anicteric sclera. Moist mucous membranes. Neck: No JVD. No bruit. Cardiovascular: Regular. Positive S-4. Normal S-1 and S-2. No S-3. No murmurs or rubs. Pulmonary: Clear to auscultation B/L. No rales, rhonchi or wheezing Abdomen: Bowel sounds x 4, soft. No rebound, guarding or tenderness. No organomegaly. Extremities: No clubbing, cyanosis or edema. +2 pedal pulses bilaterally. Skin: Warm and dry. Results & Data ([facility]) Vital Signs (Past 12 Hours) Vital Signs Temp Pulse Pulse Resp BP BP Pulse Ox 10/30/21 14:00 59 L 18 131/85 96 10/30/21 13:45 53 L 12 150/84 H 95 10/30/21 13:30 60 18 146/87 H 95 10/30/21 13:15 72 15 155/95 H 94 10/30/21 13:00 56 L 21 163/84 H 95 10/30/21 12:30 52 L 16 124/73 98 10/30/21 12:15 48 L 18 120/72 98 10/30/21 12:00 36.6 C 56 L 18 126/66 97 10/30/21 11:57 51 L 20 134/73 97 10/30/21 11:49 52 L 20 134/73 97 10/30/21 10:42 64 16 160/89 H 99 10/30/21 10:41 99 10/30/21 10:31 36.6 C 56 L 16 178/93 H 99 (1) Diabetes mellitus Diabetes mellitus complication status: without complication Diabetes mellitus penitentiary insulin use: without penitentiary use Diabetes mellitus type: type 2 Qualified Code(s): E11.9 - Type 2 diabetes mellitus without complications
[2021-10-30] MEDS: INSULIN ASPART PER UNIT SC SCH ×2 (16:32→20:30)
[2021-10-30] MEDS ORDERED: ACETAMINOPHEN 325 MG TAB ONE (20:09)
[2021-10-30] MEDS: ACETAMINOPHEN 325 MG TAB PO PRN (20:30)
[2021-10-31] MEDS: ACETAMINOPHEN 325 MG TAB PO PRN ×2 (01:56→08:27)
[2021-10-31 06:40] LABS: Basophils # (auto) 0.03 K/uL (0-0.2); Basophils % (auto) 0.5 %; Eosinophils # (auto) 0.34 K/uL (0-0.5); Eosinophils % (auto) 5.2 %; Hematocrit (blood only) 42.3 % (42-52); Hemoglobin 14.6 g/dL (14.0-18.0); Immature Granulocytes # (auto) 0.02 K/uL (0.00-0.02); Immature Granulocytes % (auto) 0.3 %; Lymphocytes # (auto) 1.52 K/uL (1.2-3.4); Lymphocytes % (auto) 23.3 %; Mean Corpuscular Hemoglobin 30.7 pg (25-34); Mean Corpuscular Hgb Conc 34.5 g/dL (32-36); Mean Corpuscular Volume 89.1 fL (80-100); Mean Platelet Volume 9.9 fL (7.4-10.4); Monocytes # (auto) 0.32 K/uL (0.11-0.59); Monocytes % (auto) 4.9 %; Neutrophils % (auto) 65.8 %; Platelet Count 194 K/uL (130-400); RDW Coefficient of Variation 12.6 % (11.5-14.5); RDW Standard Deviation 41.1 fL (36.4-46.3); Red Blood Count 4.75 M/uL (4.7-6.1); White Blood Count 6.53 K/uL (4.8-10.8)
[2021-10-31 07:01] LABS: BUN Creatinine Ratio 19.7 (10-20); Est GFR (African American) 113.3 ml/min; Est GFR (Non-African American) 97.8 ml/min; Magnesium 1.9 mg/dl (1.7-2.4); Potassium 4.2 mmol/L (3.5-5.1)
[2021-10-31 07:02] LABS: Chol HDL Ratio 3.5 (0-5)
[2021-10-31] MEDS: INSULIN ASPART PER UNIT SC SCH ×4 (07:47→21:33)
[2021-10-31 07:49] LABS: Calcium 8.9 mg/dl (8.5-10.1)
[2021-10-31] MEDS: METOPROLOL TARTRATE 25 MG TAB PO SCH ×2 (08:28→21:34)
[2021-10-31] MEDS: ATORVASTATIN 40 MG TAB PO SCH (08:28)
[2021-10-31] MEDS: ASPIRIN 81 MG ECTAB PO SCH (08:29)
[2021-10-31] MEDS: CITALOPRAM 40 MG TAB PO SCH (08:29)
[2021-10-31] MEDS: CLOPIDOGREL BISULFATE 75 MG TAB PO SCH (08:29)
--- NOTE | 2021-10-31 09:13 | Cardiology Progress Note ---
Date of Service October 31, 2021 Assessment & Plan (1) STEMI (ST elevation myocardial infarction): (2) CAD (coronary artery disease): (3) Diabetes mellitus: (4) GERD (gastroesophageal reflux disease): (5) Depression: Plan: The pathophysiology of acute coronary occlusion along with nonobstructive coronary artery disease was discussed with him at great lengths. He is already been successfully intervened upon, started on dual antiplatelet therapy and has received Integrilin drip. Beta-reid has been ordered but has been relatively bradycardic and has not received. This is not a surprising finding given the fact that was in RCA event. Locally there is no sign of any RV involvement on echocardiogram but would avoid lowering preload ok to transfer to tele for additional 48 hours of arrhythmic monitoring s/p STEMI Admission and Anticipated Discharge Date Admission Date: October 30, 2021 Subjective Pt seen and examined, chart reviewed. Without cardiac complaint. Only complaint is that of significant headache which is unusual for him. tele reviewed: sinus rhythm/bradycardia. No arrhythmias or significant ventricular ectopy. Review of Systems Review of Systems: All systems reviewed & are unremarkable except as noted in HPI & below Physical Exam Physical Exam: General: Awake, alert and oriented x 3. No acute distress. HEENT: Normocephalic, atraumatic. Pupils equal, round and reactive to light and accommodation. Extraocular muscles are intact. Anicteric sclera. Moist mucous membranes. Neck: No JVD. No bruit. Cardiovascular: Regular. Positive S-4. Normal S-1 and S-2. No S-3. No murmurs or rubs. Pulmonary: Clear to auscultation B/L. No rales, rhonchi or wheezing Abdomen: Bowel sounds x 4, soft. No rebound, guarding or tenderness. No orga nomegaly. Extremities: No clubbing, cyanosis or edema. +2 pedal pulses bilaterally. Skin: Warm and dry. Results & Data ([facility]) Vital Signs (Past 12 Hours) Vital Signs Temp Pulse Resp BP Pulse Ox 10/31/21 08:04 36.6 C 65 14 135/83 96 10/31/21 08:00 53 L 10/31/21 06:00 53 L 18 95 10/31/21 05:00 65 23 92 10/31/21 04:00 53 L 18 135/72 95 10/31/21 03:00 50 L 20 95 10/31/21 02:00 54 L 16 95 10/31/21 01:00 52 L 4 L 125/66 97 10/31/21 00:00 53 L 16 95 10/30/21 23:45 52 L 16 132/78 95 10/30/21 23:30 54 L 4 L 131/78 95 10/30/21 23:15 52 L 7 L 134/79 96 10/30/21 23:00 36.5 C 55 L 11 L 136/74 95 10/30/21 22:45 52 L 15 127/74 96 10/30/21 22:30 73 22 99 10/30/21 22:15 53 L 19 134/77 95 10/30/21 22:01 54 L 17 134/77 95 10/30/21 22:00 53 L 20 95 10/30/21 21:45 53 L 13 143/82 H 96 10/30/21 21:30 52 L 14 133/81 95 10/30/21 21:15 57 L 16 140/85 96 (1) Diabetes mellitus Diabetes mellitus complication status: without complication 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
[2021-10-31] MEDS ORDERED: oxyCODONE HCL 10 MG TABCR (OxyCONTIN) PO ONE (09:40)
--- NOTE | 2021-10-31 10:06 | Electrocardiogram Report ---
Test Reason : Blood Pressure : / mmHG Vent. 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
--- NOTE | 2021-10-31 10:08 | Electrocardiogram Report ---
Test Reason : Blood Pressure : / mmHG Vent. Rate : 055 BPM Atrial Rate : 055 BPM P-R Int : 164 ms QRS Dur : 098 ms QT Int : 454 ms P-R-T Axes : 063 068 049 degrees QTc Int : 434 ms Sinus bradycardia Otherwise normal ECG When compared with ECG of 30-OCT-2021 10:32, (unconfirmed) Inferior ST segmentst have normalized and the lateral reciprocal changes have resolved Confirmed by Akhil Cruz ([id number]) on 10/31/2021 10:08:14 AM Referred By: REFERRED SELF Confirmed By:Akhil Cruz
--- NOTE | 2021-10-31 10:30 | Electrocardiogram Report ---
Test Reason : Blood Pressure : / mmHG Vent. Rate : 059 BPM Atrial Rate : 059 BPM P-R Int : 150 ms QRS Dur : 090 ms QT Int : 436 ms P-R-T Axes : 021 061 033 degrees QTc Int : 431 ms Sinus bradycardia Otherwise normal ECG When compared with ECG of 30-OCT-2021 11:48, (unconfirmed) No significant change was found Confirmed by Akhil Cruz ([id number]) on 10/31/2021 10:30:27 AM Referred By: REFERRED SELF Confirmed By:Akhil Cruz
[2021-10-31] MEDS: ENOXAPARIN INJ 40 MG/0.4 ML SYR SQ SCH (11:04)
[2021-10-31] MEDS ORDERED: ONDANSETRON INJ 2 MG/ML 2 ML VIAL ONE (12:38)
[2021-10-31] MEDS: ONDANSETRON INJ 2 MG/ML 2 ML VIAL IV PRN ×2 (12:42→16:46)
--- NOTE | 2021-10-31 13:33 | Critical Care Progress Note ---
Date of Service October 31, 2021 Assessment & Plan (1) CAD (coronary artery disease): Plan: Successful PCI Dual antiplatelet therapy High intensity statin JOSE inhibitor -Stable for downgrade out of ICU (2) Diabetes mellitus: Plan: hemoglobin A1c: Pending Admission and Anticipated Discharge Date Admission Date: October 30, 2021 Subjective Feels improved with exception of current nausea. Tolerating diet Physical Exam Physical Exam: General: Alert. nontoxic. Skin: Warm, dry, Head: Atraumatic Ears, nose, mouth and throat: airway patent Cardiovascular: Normal peripheral perfusion Respiratory: no respiratory distress Gastrointestinal: Non distended Musculoskeletal: No deformity Results & Data Results & Data ([facility]) Vital Signs (Past 12 Hours) Vital Signs Temp Pulse Resp BP Pulse Ox 10/31/21 13:00 50 L 12 133/82 93 10/31/21 11:00 59 L 21 101/55 L 92 10/31/21 10:00 56 L 14 137/76 91 10/31/21 09:00 57 L 20 126/71 95 10/31/21 08:04 36.6 C 65 14 135/83 96 10/31/21 08:00 53 L 10/31/21 06:00 53 L 18 95 10/31/21 05:00 65 23 92 10/31/21 04:00 53 L 18 135/72 95 10/31/21 03:00 50 L 20 95 10/31/21 02:00 54 L 16 95 Coding Level of Care Code 05398 Subseq Obs Care Lvl 1 Diagnoses CAD (coronary artery disease) I25.10 Diabetes mellitus E11.9 Diabetes mellitus complication status: without complication 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
--- NOTE | 2021-10-31 14:47 | Hospitalist Progress Note ---
Date of Service October 31, 2021 Assessment & Plan (1) ACS (acute coronary syndrome): (2) STEMI (ST elevation myocardial infarction): (3) RCA occlusion: (4) Diabetes mellitus: Plan: 66-year-old male who has significant past medical history of T2DM, GERD, BPH, depression who presents to ED 10/30 after experiencing chest pain prior to arrival. 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 Admitting echo reviewed. Cardiology on board, patient on DAPT. Patient will be monitored in ICU for 24 hours postprocedure. No further chest pain, bradycardic, metoprolol per cardiology. High intensity statin, atorvastatin Nausea control, monitor QTC. Monitor and replete electrolytes. T2DM A1c 6.6 on 06/14/2021 A1c pending Hold metformin NovoLog correction factor protocol Depression Continue citalopram dvt ppx: On Lovenox Dispo: ICU PCP: Arlette Jane FULL CODE Admission and Anticipated Discharge Date Admission Date: October 30, 2021 Subjective Patient seen and examined at bedside as a follow-up of NSTEMI secondary to RCA occlusion status post successful PCI and on DAPT. Patient was lying in bed, on room air, NAD, no new acute events/further chest pain. Patient reports eating breakfast but does not feel hungry to eat his shannan ch. Patient reports some nausea, as needed Zofran, monitor QTC. Patient denies any chest pain, shortness of breath, headache, dizziness, belly pain, acute changes in his bowel or bladder habits. Physical Exam Physical Exam: GENERAL: Alert and oriented x3. NAD, on RA. HEENT: No pallor, no icterus. Pupils equal, round and reactive to light. Oral mucosa moist. NECK: No JVD, no neck masses. HEART: S1 and S2 heard. Regular rate and rhythm. No murmur, no gallop. RESPIRATORY SYSTEM: Normal AP diameter. No accessory muscle use. No wheezing, no crackles. ABDOMEN: Soft, bowel sounds present, nontender, no distention. CENTRAL NERVOUS SYSTEM: No facial droop. Speech is clear. Obeys simple comma nds. Moves extremities. EXTREMITIES: No edema, no erythema seen. 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
[2021-11-01 06:12] LABS: Basophils # (auto) 0.03 K/uL (0-0.2); Basophils % (auto) 0.5 %; Eosinophils # (auto) 0.43 K/uL (0-0.5); Eosinophils % (auto) 7.6 %; Hematocrit (blood only) 44.1 % (42-52); Hemoglobin 15.2 g/dL (14.0-18.0); Immature Granulocytes # (auto) 0.01 K/uL (0.00-0.02); Immature Granulocytes % (auto) 0.2 %; Lymphocytes # (auto) 1.71 K/uL (1.2-3.4); Lymphocytes % (auto) 30.3 %; Mean Corpuscular Hemoglobin 30.7 pg (25-34); Mean Corpuscular Hgb Conc 34.5 g/dL (32-36); Mean Corpuscular Volume 89.1 fL (80-100); Mean Platelet Volume 10.1 fL (7.4-10.4); Monocytes # (auto) 0.38 K/uL (0.11-0.59); Monocytes % (auto) 6.7 %; Neutrophils # (auto) 3.08 K/uL (1.4-6.5); Neutrophils % (auto) 54.7 %; Platelet Count 196 K/uL (130-400); RDW Coefficient of Variation 12.6 % (11.5-14.5); RDW Standard Deviation 40.5 fL (36.4-46.3); Red Blood Count 4.95 M/uL (4.7-6.1); White Blood Count 5.64 K/uL (4.8-10.8)
[2021-11-01] MEDS: ACETAMINOPHEN 325 MG TAB PO PRN (06:31)
[2021-11-01 06:34] LABS: BUN Creatinine Ratio 13.6 (10-20); Calcium 9.1 mg/dl (8.5-10.1); Creatinine Clr Calc Pharmacy 102.2 ml/min; Est GFR (African American) 103.7 ml/min; Est GFR (Non-African American) 89.5 ml/min; Magnesium 1.9 mg/dl (1.7-2.4); Phosphorus 3.7 mg/dl (2.5-4.9); Potassium 4.5 mmol/L (3.5-5.1)
[2021-11-01] MEDS: INSULIN ASPART PER UNIT SC SCH ×2 (08:02→12:20)
[2021-11-01 08:08] LABS: Estimated Average Glucose 140 mg/dl; Hemoglobin A1C 6.5 % (4.5-5.6)
[2021-11-01] MEDS: METOPROLOL TARTRATE 25 MG TAB PO SCH ×2 (09:42→10:35)
[2021-11-01] MEDS: ASPIRIN 81 MG ECTAB PO SCH (09:42)
[2021-11-01] MEDS: CITALOPRAM 40 MG TAB PO SCH (09:43)
[2021-11-01] MEDS: ATORVASTATIN 40 MG TAB PO SCH (09:43)
[2021-11-01] MEDS: CLOPIDOGREL BISULFATE 75 MG TAB PO SCH (09:43)
[2021-11-01] MEDS: ENOXAPARIN INJ 40 MG/0.4 ML SYR SQ SCH (12:21)
--- NOTE | 2021-11-01 12:43 | Discharge Summary ---
Date of Service November 01, 2021 Admission HPI Per Admitting Provider This is a 66-year-old male who has significant past medical history of T2DM, GERD, BPH, depression who presents to ED after experiencing chest pain prior to arrival. Patient denies any prior history of CAD or coronary intervention. He is otherwise an active male who goes to the gym and lifts weights 2-3 times a week. He woke up this morning approximately 6:30 AM and generally felt unwell. Shortly after he then began to experience substernal chest pain that radiated to his left arm. He also was diaphoretic and nauseated. EMS was summoned. He was noted to have ST elevations inferiorly. He received 2 sublingual nitro and 4 baby aspirin which did improve chest pain and EKG. Patient was made a heart alert and directed immediately to cardiac Provider Relations Representative. He was found to have 100% occluded RCA with large thrombus. 1 successful BRITTANY was placed in the RCA. He was started on Integrilin due to thrombus. He was also noted to have 60% LAD disease and 50% proximal left circumflex disease. Patient's chest pain improved and he was transferred to ICU on Integrilin. Currently patient is chest pain- free. He currently denies any recent illness, fever, chills, sweats, lightheadedness, dizziness, chest pain, shortness breath, cough, URI symptoms, hemoptysis, nausea, vomiting, abdominal pain, change in bowel or urinary habits. Admission Exam Per Admitting Provider NAD, well developed Card: Normal S1/S2, no murmur Lungs: CTA, no wheezing or crackles Abd: ND, NT, soft MSK: pressure dressing/cuff on the R wrist, no LE edema Psych: AAOx3, normal affect Principal Diagnosis STEMI, RCA occlusion, status post RCA stent x1 Discharge Exam GENERAL: Alert and oriented x3. NAD, on RA. HEENT: No pallor, no icterus. Pupils equal, round and reactive to light. Oral mucosa moist. NECK: No JVD, no neck masses. HEART: S1 and S2 heard. Regular rate and rhythm. No murmur, no gallop. RESPIRATORY SYSTEM: Normal AP diameter. No accessory muscle use. No wheezing, no crackles. ABDOMEN: Soft, bowel sounds present, nontender, no distention. CENTRAL NERVOUS SYSTEM: No facial droop. Speech is clear. Obeys simple commands. Moves extremities. EXTREMITIES: No edema, no erythema seen. Discharge Data Allergies Allergy/AdvReac Type Severity Reaction Status Date / Time No Known Allergies Allergy U Verified 04/10/20 00:11 Consultations 10/30/21 11:27 Consult Director Of Compliance Routine 10/30/21 11:38 ED Decision to Admit Stat 10/30/21 12:27 Consult Cardiology Routine Procedures Performed Operation Date: 10/30/21 10:45 Actual Procedures p Aspiration/PCI w/BRITTANY for Stemi - Jermaine Salcedo MD p Cath, Left with Cors and Vent - Corey Ortiz MD s Cineradiography w/Routine Exam - Jermaine Salcedo MD Ordered Studies 10/30/21 10:39 CL Cath Imgs for PACS use only Stat Hospital Course (1) ACS (acute coronary syndrome): (2) STEMI (ST elevation myocardial infarction): (3) RCA occlusion: (4) Diabetes mellitus: 66-year-old male who has significant past medical history of T2DM, GERD, BPH, depression who presents to ED 10/30 after experiencing chest pain prior to arrival. He was managed for the following: ACS STEMI 2/2 RCA occlusion CAD -residual LAD and left circumflex With no prior history of CAD or coronary intervention, patient presenting with chest pain, taken to Provider Relations Representative on 10/30 status post BRITTANY stent to RCA. Admitting echo reviewed. Cardiology on board, patient on DAPT. Patient will be monitored in ICU for 24 hours postprocedure. No further chest pain, bradycardic, metoprolol per cardiology. High intensity statin, atorvastatin Patient feeling great, no further chest pain, hemodynamically stable, patient would like to go home. Cardiology okay with patient being discharged from the point of view. Patient to follow-up with PCP and cardiology in a week time upon discharge. T2DM A1c 6.6 on 06/14/2021 A1c pending Hold metformin NovoLog correction factor protocol Depression Continue citalopram dvt ppx: On Lovenox Dispo: ICU PCP: Arlette Jane FULL CODE Following instructions were communicated to the patient at the point of discharge: Follow-up with your primary care physician within a week time. Follow-up with your cardiology as an outpatient in 1 to 2 weeks of discharge. Get your blood work CBC and CMP done in a week time and have the results forwarded to your primary care physician. You have been started on low-dose aspirin and Plavix, also on metoprolol by cardiology while inpatient. Take heart healthy diet, low-sodium diet, diabetic diet. Take your medications as prescribed. Home Care: * Take your medications exactly as directed. Don't skip doses. * Remember that recovery after a heart attack takes time. Plan to rest for at lease 4-8 weeks while you recover. Then return to normal activity when your doctor says it's okay. * Ask your doctor about joining a heart rehabilitation program. * Tell your doctor if you are feeling depressed. Feelings of sadness are common after a heart attack, but it is important that you speak to someone if you are feeling overwhelmed by these feelings. * If you are having chest pain, call 911 for an ambulance. Do NOT drive yourself to the hospital. * Ask your family members to learn CPR. * Learn to take your own blood pressure and pulse. Keep a record of your results. Ask your doctor when you should seek emergency medical attention. He or she will tell you which blood pressure reading is dangerous. Lifestyle Changes: * Maintain a healthy weight. Get help to lose any extra pounds. * Cut back on salt. * Limit canned, dried, packaged, and fast foods. * Don't add salt to your food. * Season foods with herbs instead of salt when you cook. * Break the smoking habit. Enroll in a stop-smoking program to improve your chances of success. * Limit fatty foods. * Ask your doctor about having your lipid levels checked regularly. * Build up your activity according to your doctor's recommendation. * Ask your doctor when it's okay to resume sexual activity. * Tell your doctor about any erectile dysfunction (ED) medication you are taking. Some ED medications are not safe if you take certain heart medications. * Try to manage stress. Follow Up: It is important for you to keep your follow up appointments with your medical provider. Total Time Total Time Spent Total Time Spent (In Minutes): 35 Discharge Plan Discharge Items Patient Disposition: Home - Self-Care Reason For Visit: STEMI Discharge Diagnosis: STEMI, RCA occlusion, status post RCA stent x1 Condition on Discharge: Serious Activity: Per Instructions section Non-emergency contact: Primary Care Provider Call non-emergency contact if: you have any medication questions, your symptoms worsen, your pain is not controlled and your temperature is above 101 Follow-up/Referrals: Arlette Jane MD [Outside Practitioners] - (Date & Time 11/09/2021 10:20 [facility] General Internal Medicine [facility] ) Candace Reynoso CRNP [Nurse Practitioner] - (Date & Time 11/22/2021 11:30 [facility] ) Diet: Carb Consistent or DM2 and Heart Healthy Addtl Attending Provider Instructions: Follow-up with your primary care physician within a week time. Follow-up with your cardiology as an outpatient in 1 to 2 weeks of discharge. Get your blood work CBC and CMP done in a week time and have the results forwarded to your primary care physician. You have been started on low-dose aspirin and Plavix, also on metoprolol by cardiology while inpatient. Take heart healthy diet, low-sodium diet, diabetic diet. Take your medications as prescribed. Home Care: * Take your medications exactly as directed. Don't skip doses. * Remember that recovery after a heart attack takes time. Plan to rest for at lease 4-8 weeks while you recover. Then return to normal activity when your doctor says it's okay. * Ask your doctor about joining a heart rehabilitation program. * Tell your doctor if you are feeling depressed. Feelings of sadness are common after a heart attack, but it is important that you speak to someone if you are feeling overwhelmed by these feelings. * If you are having chest pain, call 911 for an ambulance. Do NOT drive yourself to the hospital. * Ask your family members to learn CPR. * Learn to take your own blood pressure and pulse. Keep a record of your results. Ask your doctor when you should seek emergency medical attention. He or she will tell you which blood pressure reading is dangerous. Lifestyle Changes: * Maintain a healthy weight. Get help to lose any extra pounds. * Cut back on salt. * Limit canned, dried, packaged, and fast foods. * Don't add salt to your food. * Season foods with herbs instead of salt when you cook. * Break the smoking habit. Enroll in a stop-smoking program to improve your chances of success. * Limit fatty foods. * Ask your doctor about having your lipid levels checked regularly. * Build up your activity according to your doctor's recommendation. * Ask your doctor when it's okay to resume sexual activity. * Tell your doctor about any erectile dysfunction (ED) medication you are taking. Some ED medications are not safe if you take certain heart medications. * Try to manage stress. Follow Up: It is important for you to keep your follow up appointments with your medical provider. Pending Studies at Discharge: No Stand-Alone Forms: My [facility], Smoking Cessation Medications and DC Order Prescriptions: New clopidogrel 75 mg Tablet 75 mg PO QAM Qty: 30 RF: 0 atorvastatin 40 mg Tablet 40 mg PO QAM Qty: 30 RF: 0 nitroglycerin [Nitrostat] 0.4 mg Tablet, Sublingual 0.4 mg sublingual Q5M PRN (Reason: chest pain) Qty: 30 RF: 0 metoprolol succinate 25 mg tablet extended release 24 hr 12.5 mg PO DAILY Qty: 30 RF: 0 aspirin 81 mg Tablet,Delayed Release (Dr/Ec) 81 mg PO QAM Qty: 30 RF: 0 Continued multivitamin Tablet 1 tab PO DAILY RF: 0 metformin 500 mg tablet 500 mg PO BID RF: 0 citalopram 40 mg tablet 40 mg PO DAILY RF: 0 Discharge Orders: Discharge Order (Routine); Ordered 11/01/21 Ordered By: Dillon Babin/Other Patient Handouts: Managing Type 2 Diabetes, Eating Heart-Healthy Foods Admission Data Admit Date/Time: 10/30/21 11:06 Attending Provider: Dillon Peguero Admit Provider: Jey Grossman Primary Care Provider: Fabricio Tillman Other Providers: Colin Lynn ; Jey Grossman ; Anthony Renteria
--- NOTE | 2021-11-01 13:29 | Electrocardiogram Report ---
Test Reason : Blood Pressure : / mmHG Vent. Rate : 050 BPM Atrial Rate : 050 BPM P-R Int : 148 ms QRS Dur : 090 ms QT Int : 460 ms P-R-T Axes : 018 048 029 degrees QTc Int : 419 ms Sinus bradycardia Otherwise normal ECG When compared with ECG of 31-OCT-2021 06:54, No significant change was found Confirmed by Aman Rogel ([id number]) on 11/01/2021 1:28:54 PM Referred By: REFERRED SELF Confirmed By:Aman Rogel
--- NOTE | 2021-11-01 14:14 | Electrocardiogram Report ---
Test Reason : Blood Pressure : / mmHG Vent. Rate : 057 BPM Atrial Rate : 057 BPM P-R Int : 156 ms QRS Dur : 090 ms QT Int : 426 ms P-R-T Axes : 059 083 057 degrees QTc Int : 414 ms Sinus bradycardia Nonspecific ST abnormality Abnormal ECG When compared with ECG of 31-OCT-2021 12:40, (unconfirmed) No significant change was found Confirmed by Aman Rogel ([id number]) on 11/01/2021 2:13:46 PM Referred By: REFERRED SELF Confirmed By:Aman Rogel
== END 2021-11-01 13:32 | disposition home or self-care (01) | DRG 247 ==
LOC: ED 10:28 → 1E 10:46 → SUATTDRO 11:06